=== PATIENT | female | born 1960 | race Caucasian/White ===

== ENCOUNTER 2017-07-19 11:55 | Inpatient (IN) | payer OTHER, MEDICAID ==
[~2017-07-19] VITALS: Ht 149.9 cm; Wt 76.8 kg
[2017-07-19 14:00] LABS: BASOPHIL % 0.1 % (0-2); PLATELET COUNT 267 x10^3mcL (130-400); RED CELL DISTRIBUTION WIDTH 12.3 % (11.5-14.5)
[2017-07-19 14:35] LABS: CALCIUM 9.2 mg/dL (8.5-10.1); CARBON DIOXIDE 26.3 mmol/L (21-32); CHLORIDE SERUM 97 mmol/L (98-107); CREATININE SERUM 0.7 mg/dL (0.6-1.0); GFR1 > 60 mL/min; GLUCOSE SERUM 127 mg/dL (74-106); POTASSIUM SERUM 3.7 mmol/L (3.5-5.1); SODIUM SERUM 134 mmol/L (136-145)
[2017-07-19 14:40] LABS: ALBUMIN 3.5 g/dL (3.4-5.0); ALKALINE PHOSPHATASE 79 U/L (46-116); ALT/SGPT 20 U/L (14-59); AST/SGOT 15 U/L (15-37)
[2017-07-19 14:42] LABS: TOTAL PROTEIN, SERUM 8.3 g/dL (6.4-8.2)
[2017-07-19] MEDS ORDERED: TENORMIN25 MG PO (15:12)
[2017-07-19] MEDS ORDERED: RISPERIDONE3 M2 PO (15:13)
[2017-07-19] MEDS ORDERED: FISH OIL500 M1 PO (15:13)
[2017-07-19] MEDS ORDERED: LACTULOSE10 GM/152 PO (15:13)
[2017-07-19] MEDS ORDERED: DEPAKOTE500 MG PO (15:13)
[2017-07-19] MEDS ORDERED: RAMIPRIL2.5 MG PO (15:14)
[2017-07-19] MEDS ORDERED: COLACE100 MG PO (15:14)
[2017-07-19] MEDS ORDERED: ZYPREXA10 M1 PO (15:14)
[2017-07-19] MEDS ORDERED: TEG100 PO (15:14)
[2017-07-19] MEDS ORDERED: KEPPRA1000 M1 PO (15:15)
[2017-07-19] MEDS ORDERED: BENTYL20 MG PO (15:16)
[2017-07-19] MEDS ORDERED: OLEPTRO150 MG PO (15:16)
[2017-07-19] MEDS ORDERED: LOMOTIL1 TAB PO (15:16)
[2017-07-19 15:34] LABS: microscopic required? YES; urine erythrocyte TRACE (NEGATIVE)
[2017-07-19 15:42] LABS: AMPHETAMINE QUAL UR NONE DETECTED (NEG <=1000)
[2017-07-19 16:24] VITALS: BP 133/76
[2017-07-19 16:25] LABS: MAGNESIUM 1.9 mg/dL (1.8-2.4); PHOSPHOROUS 2.5 mg/dL (2.5-4.9)
[2017-07-19 16:34] LABS: T3 TOTAL 0.82 ng/mL
[2017-07-19 16:50] LABS: FREE T4 0.9 ng/dL (0.76-1.46); FREE THYROXINE INDEX 2.6 ug/dL (1.4-4.5); T4(THYROXINE) 7.5 ug/dL (4.7-13.3)
[2017-07-19 21:01] VITALS: BP 137/77
[2017-07-20 06:03] VITALS: BP 98/74
[2017-07-20 06:36] LABS: PLATELET COUNT 236 x10^3mcL (130-400); RED CELL DISTRIBUTION WIDTH 12.6 % (11.5-14.5)
[2017-07-20 06:58] LABS: CALCIUM 8.4 mg/dL (8.5-10.1); CARBON DIOXIDE 24.3 mmol/L (21-32); CHLORIDE SERUM 99 mmol/L (98-107); CHOLESTEROL 170 mg/dL (<200); CREATININE SERUM 0.6 mg/dL (0.6-1.0); GFR1 > 60 mL/min; GLUCOSE SERUM 109 mg/dL (74-106); LACTIC DEHYDROGENASE (LDH) 170 U/L (100-190); POTASSIUM SERUM 3.8 mmol/L (3.5-5.1); SODIUM SERUM 133 mmol/L (136-145); TRIGLYCERIDES 83 mg/dL (<150)
[2017-07-20 07:10] LABS: CHOLESTEROL/HDL RATIO 2.3; HDL CHOLESTEROL 75 mg/dL (40-60)
[2017-07-20 07:57] LABS: BAND NEUTROPHIL 7 % (0-10); BASOPHIL 0 % (0-2); METAMYELOCTE 1 % (0-2); MONOCYTE 15 % (0-7); PLATELET MORPHOLOGY LARGE PLATELET SEEN; SEGMENTED NEUTROPHILS 66 % (37-75); rbc morphology (normal/abnorm) ABNORMAL (NORMAL); tear drop cell (dacryocyte) 1+
[2017-07-20 08:05] VITALS: BP 139/72
[2017-07-20 13:00] VITALS: BP 135/77
[2017-07-20 15:21] VITALS: BP 123/65
[2017-07-20 18:31] VITALS: BP 131/73
[2017-07-20 20:59] VITALS: BP 108/68
[2017-07-21 05:43] VITALS: BP 152/79
[2017-07-21 06:47] LABS: CALCIUM 8.3 mg/dL (8.5-10.1); CARBON DIOXIDE 23.4 mmol/L (21-32); CHLORIDE SERUM 102 mmol/L (98-107); CREATININE SERUM 0.6 mg/dL (0.6-1.0); GFR1 > 60 mL/min; GLUCOSE SERUM 108 mg/dL (74-106); POTASSIUM SERUM 3.3 mmol/L (3.5-5.1); SODIUM SERUM 135 mmol/L (136-145)
[2017-07-21 06:52] LABS: BASOPHIL % 0.2 % (0-2); PLATELET COUNT 207 x10^3mcL (130-400); RED CELL DISTRIBUTION WIDTH 12.6 % (11.5-14.5)
[2017-07-21 08:43] VITALS: BP 152/79
[2017-07-21 21:04] VITALS: BP 158/91
[2017-07-22 05:32] VITALS: BP 146/73
[2017-07-22 06:52] LABS: BASOPHIL % 0.4 % (0-2); PLATELET COUNT 212 x10^3mcL (130-400); RED CELL DISTRIBUTION WIDTH 12.4 % (11.5-14.5)
[2017-07-22 06:53] LABS: CALCIUM 8.3 mg/dL (8.5-10.1); CARBON DIOXIDE 26.5 mmol/L (21-32); CHLORIDE SERUM 102 mmol/L (98-107); CREATININE SERUM 0.6 mg/dL (0.6-1.0); GFR1 > 60 mL/min; GLUCOSE SERUM 134 mg/dL (74-106); POTASSIUM SERUM 3.7 mmol/L (3.5-5.1); SODIUM SERUM 137 mmol/L (136-145)
[2017-07-22 08:13] LABS: AMYLASE 26 U/L (25-115); LIPASE 97 IU/L (73-393)
[2017-07-22 15:30] VITALS: BP 166/103
[2017-07-22 19:48] VITALS: BP 113/59
[2017-07-23 04:26] VITALS: BP 127/70
[2017-07-23 06:48] LABS: SODIUM SERUM 138 mmol/L (136-145)
[2017-07-23 06:49] LABS: BASOPHIL % 0.6 % (0-2); CALCIUM 8.5 mg/dL (8.5-10.1); CARBON DIOXIDE 30.7 mmol/L (21-32); CHLORIDE SERUM 104 mmol/L (98-107); CREATININE SERUM 0.5 mg/dL (0.6-1.0); GFR1 > 60 mL/min; GLUCOSE SERUM 102 mg/dL (74-106); PLATELET COUNT 257 x10^3mcL (130-400); POTASSIUM SERUM 3.7 mmol/L (3.5-5.1); RED CELL DISTRIBUTION WIDTH 12.5 % (11.5-14.5)
[2017-07-23 08:57] VITALS: BP 127/70
== END 2017-07-23 11:35 | DRG 439 ==
LOC: ED 11:55 → DU 14:52
PROVIDERS: Emergency Medicine; Student in an Organized Health Care Education/Training Program; ADMIT Family Medicine
DX: K85.90 Acute pancreatitis without necrosis or infection, unspecified (principal); N39.0 Urinary tract infection, site not specified; E87.1 Hypo-osmolality and hyponatremia; J98.11 Atelectasis; F73 Profound intellectual disabilities; R73.03 Prediabetes; I10 Essential (primary) hypertension; K80.20 Calculus of gallbladder without cholecystitis without obstruction; G80.9 Cerebral palsy, unspecified; G40.909 Epilepsy, unspecified, not intractable, without status epilepticus; Z68.33 Body mass index [BMI] 33.0-33.9, adult
CPT/HCPCS: 76770; 82962; 83880; 84439; J0696; J1170; J1200; J1630; J1885; J2060; J2270; J3475; J7030; J7042; J7620; Q0092

== ENCOUNTER 2019-04-30 16:25 | Emergency (ER) | payer OTHER, MEDICAID ==
[~2019-04-30] VITALS: Ht 162.6 cm; Wt 70.8 kg
[~2019-04-30 16:25] MED LIST: BENTYL20 MG PO; COLACE100 MG PO; DEPAKOTE500 MG PO; FISH OIL500 M1 PO; KEPPRA1000 M1 PO; LACTULOSE10 GM/152 PO; LOMOTIL1 TAB PO; OLEPTRO150 MG PO; RAMIPRIL2.5 MG PO; RISPERIDONE3 M2 PO; TEG100 PO; TENORMIN25 MG PO; ZYPREXA10 M1 PO
[2019-04-30 16:35] VITALS: BP 129/77; Ht 162.6 cm; Wt 70.8 kg
== END 2019-04-30 17:01 | disposition home or self-care (01) ==
LOC: ED 16:25
DX: S00.03XA Contusion of scalp, initial encounter (principal); S40.021A Contusion of right upper arm, initial encounter; S80.01XA Contusion of right knee, initial encounter; W18.39XA Other fall on same level, initial encounter; Y93.89 Activity, other specified; Y92.89 Other specified places as the place of occurrence of the external cause; Y99.8 Other external cause status

== ENCOUNTER 2019-11-13 08:29 | Emergency (ER) | payer OTHER, MEDICAID ==
[~2019-11-13] VITALS: Ht 152.4 cm; Wt 73.0 kg
[2019-11-13 08:33] VITALS: Ht 152.4 cm; Wt 73.0 kg
[2019-11-13 09:30] VITALS: BP 110/75
== END 2019-11-13 09:30 | disposition home or self-care (01) ==
LOC: ED 08:29
DX: S01.01XA Laceration without foreign body of scalp, initial encounter (principal); W22.8XXA Striking against or struck by other objects, initial encounter; Y93.89 Activity, other specified; Y92.89 Other specified places as the place of occurrence of the external cause; Y99.8 Other external cause status